=== PATIENT | female | born 1985 | race Caucasian/White ===

== ENCOUNTER 2016-11-20 14:33 | Emergency (ER) | payer BC ==
[~2016-11-20] VITALS: Ht 175.3 cm; Wt 98.0 kg
[2016-11-20 14:34] VITALS: BP 132/83; PULSE 112; RESP 18; TEMP 98.6; O2SAT 98
--- NOTE | 2016-11-20 15:52 | RADRPT ---
EXAM DATE/TIME: 11/20/2016 15:29 [place] COMPARISON: No previous studies available for comparison. INDICATIONS : Patient has had left side chest pain for four days. MEDICAL HISTORY : Asthma. SURGICAL HISTORY : None. ENCOUNTER: Initial ACUITY: 4 - 6 days PAIN SCORE: 3/10 LOCATION: Bilateral chest FINDINGS: A single view of the chest demonstrates the lungs to be symmetrically aerated without evidence of mas s, infiltrate or effusion. The cardiomediastinal contours are unremarkable. Osseous structures are intact. CONCLUSION: No acute disease. John Wahl MD on November 20, 2016 at 15:48 Board Certified Radiologist. This report was verified electronically.
[2016-11-20 16:06] LABS: AUTOMATED NEUTROPHIL # 4.7 TH/MM3 (1.8-7.7); BASOPHIL % 0.6 % (0.0-2.0); EOSINOPHIL % 0.6 % (0.0-4.0); HEMATOCRIT 39.8 % (35.0-46.0); HEMO FLAGS DIFF FINAL; LYMPH % 21.2 % (9.0-44.0); LYMPHOCYTE # 1.4 TH/MM3 (1.0-4.8); MEAN CELL VOLUME 84.7 FL (80.0-100.0); MEAN CORPUSCULAR HEMOGLOBIN 27.8 PG (27.0-34.0); MEAN CORPUSCULAR HGB CONC 32.8 % (32.0-36.0); MONO % 7.5 % (0.0-8.0); NEUT % 70.1 % (16.0-70.0); PLATELET COUNT 216 TH/MM3 (150-450); RED CELL DISTRIBUTION WIDTH 13.8 % (11.6-17.2); WHITE BLOOD COUNT 6.7 TH/MM3 (4.0-11.0)
[2016-11-20 16:11] LABS: ANION GAP 9 MEQ/L (5-15); BICARBONATE 26.9 MEQ/L (21.0-32.0); BLOOD UREA NITROGEN 9 MG/DL (7-18); CHLORIDE 104 MEQ/L (98-107); GLOMERULAR FILTRATION RATE 67 ML/MIN (>89); POTASSIUM 3.5 MEQ/L (3.5-5.1); SODIUM (NA) 140 MEQ/L (136-145)
[2016-11-20 16:15] LABS: CREATINE KINASE 124 U/L (26-192)
[2016-11-20 16:28] LABS: CKMB LESS THAN 0.5 NG/ML (0.5-3.6)
[2016-11-20 16:41] VITALS: BP 113/65; PULSE 73; RESP 17; O2SAT 99
[2016-11-20] MEDS ORDERED: NAPR500T PO (16:52)
--- NOTE | 2016-11-20 16:53 | PD ---
HPI Chief Complaint: Chest Pain Time Seen by Provider: 16:52 Travel History International Travel<30 days: No Contact w/Intl Traveler<30days: No Traveled to known affect area: No History of Present Illness HPI 31-year-old female with a history of anxiety presents to the emergency department for evaluation of left lower chest wall pain for 3 days. Patient describes the pain as constant dull ache for 3 days that worsened today. States that the pain is aggravated with bending over and lifting her left arm above her head. States that she thinks that while she was walking her dog he pulled on the leash causing her to pull a muscle in her chest. Denies any shortness of breath, difficulty breathing, lightheadedness, dizziness, nausea, vomiting, abdominal pain, swelling of the extremities. Denies any history of heart disease or [place]. Denies smoking history. Denies any family history of cardiac disease. She has not taken anything for symptoms so far. No other complaints. PFSH Past Medical History Anxiety: Yes ?: Not LMP: 11/20/16 Past Surgical History Other Surgery: Yes ( CARRIE REMOVAL R ARM AGE 8 ) Social History Alcohol Use: Yes (OCC) Tobacco Use: No Substance Use: No Allergies-Medications (Allergen,Severity, Reaction): Coded Allergies: No Known Allergies (Unverified , 11/20/16) Reported Meds & Prescriptions Reported Meds & Active Scripts Active Naproxen 500 Mg Tab 500 Mg PO BID 7 Days Review of Systems Except as stated in HPI: all other systems reviewed are Neg Physical Exam Narrative GENERAL: Well-nourished and well-developed pleasant female patient in no acute distress who is nontoxic appearing. SKIN: Warm and dry. HEAD: Normocephalic and atraumatic. EYES: No injection, drainage, or hyphema noted. PERRLA. EOMI. ENT: No nasal drainage noted. Oropharynx is clear. NECK: Supple and the trachea is midline. CARDIOVASCULAR: Regular rate and rhythm. RESPIRATORY: Breath sounds are equal bilaterally with no accessory muscle use, wheezing, rhonchi, or crackles. GASTROINTESTINAL: Abdomen is soft, non-tender, and nondistended. MUSCULOSKELETAL: No obvious deformities, swelling, cyanosis, or ecchymosis is present throughout the upper and lower extremities. Patient has full range of motion without any signs of neurovascular compromise. NEUROLOGICAL: Awake, alert, and oriented. Normal speech and gait. Cranial nerves are grossly intact. Data Data Last Documented VS Vital Signs Date Time Temp Pulse Resp B/P Pulse Ox O2 Delivery O2 Flow Rate FiO2 11/20/16 16:41 99 Room Air 11/20/16 16:41 73 17 113/65 11/20/16 14:34 98.6 Orders Electrocardiogram (11/20/16 15:03) Complete Blood Count With Diff (11/20/16 15:) Basic Metabolic Panel (Bmp) (11/20/16 15:) Ckmb (Isoenzyme) Profile (11/20/16 15:) Troponin I (11/20/16 15:) Chest, Single Ap (11/20/16 15:) Iv Access Insert/Monitor (11/20/16 15:) Ecg Monitoring (11/20/16 15:) Oxygen Administration (11/20/16 15:) Oximetry (11/20/16 15:) CKMB (11/20/16:) CKMB% (11/20/16:) Labs Laboratory Tests Test 11/20/16 15:21 White Blood Count 6.7 TH/MM3 Red Blood Count 4.70 MIL/MM3 Hemoglobin 13.1 GM/DL Hematocrit 39.8 % Mean Corpuscular Volume 84.7 FL Mean Corpuscular Hemoglobin 27.8 PG Mean Corpuscular Hemoglobin 32.8 % Concent Red Cell Distribution Width 13.8 % Platelet Count 216 TH/MM3 Mean Platelet Volume 7.8 FL Neutrophils (%) (Auto) 70.1 % Lymphocytes (%) (Auto) 21.2 % Monocytes (%) (Auto) 7.5 % Eosinophils (%) (Auto) 0.6 % Basophils (%) (Auto) 0.6 % Neutrophils # (Auto) 4.7 TH/MM3 Lymphocytes # (Auto) 1.4 TH/MM3 Monocytes # (Auto) 0.5 TH/MM3 Eosinophils # (Auto) 0.0 TH/MM3 Basophils # (Auto) 0.0 TH/MM3 CBC Comment DIFF FINAL Differential Comment Sodium Level 140 MEQ/L Potassium Level 3.5 MEQ/L Chloride Level 104 MEQ/L Carbon Dioxide Level 26.9 MEQ/L Anion Gap 9 MEQ/L Blood Urea Nitrogen 9 MG/DL Creatinine 0.97 MG/DL Estimat Glomerular Filtration 67 ML/MIN Rate Random Glucose 81 MG/DL Calcium Level 8.4 MG/DL Total Creatine Kinase 124 U/L Creatine Kinase MB LESS THAN 0.5 NG/ML Troponin I LESS THAN 0.02 NG/ML MDM Medical Decision Making Medical Screen Exam Complete: Yes Emergency Medical Condition: Yes Differential Diagnosis Chest wall pain versus muscle strain versus muscle spasm versus pleurisy versus costochondritis Narrative Course 31-year-old female presents to the emergency department for evaluation of left chest wall pain for 3 days. Patient is afebrile, vital signs are stable. Physical examination is unremarkable. The patient's pain is suspicious for musculoskeletal etiology. Labs were done per protocol which shows CBC unremarkable, CMP unremarkable, troponin less than 0.02. Chest x-ray is negative. EKG shows normal sinus rhythm with no acute elevations or depressions. I discussed all findings with the patient. I did offer her admission to chest pain center however she like to be discharged home and will follow-up with her PCP. We'll try NSAIDs for her pain. Instructed to return immediately to the emergency department for worsening chest pain, difficulty breathing, lightheadedness or syncope. Patient verbalizes understanding and agreement with treatment plan. I discussed the case with my attending physician Dr. Ford who is aware of the patients history, physical examination findings, and treatment plan. Diagnosis Primary Impression: Left-sided chest wall pain Referrals: Primary Care Physician Patient Instructions: Chest Wall Pain (ED), General Instructions Additional Instructions: Take medications as prescribed with food and a full glass of water. Follow-up with your Primary Care Physician. Return to the ED for any acute worsening of symptoms. Med/Other Pt SpecificInfo: Prescription(s) given Scripts Naproxen 500 Mg [id number] Mg PO BID 7 Days Ref 0 Prov:Nkechi Ford MD 11/20/16 Disposition: 01 DISCHARGE HOME Condition: Stable Liudmila Hugo Nov 20, 2016 16:53
--- NOTE | 2016-11-21 15:41 | EKG ---
Date Performed: 11/20/2016 Time Performed: 15:10:02 PTAGE: 31 years EKG: Sinus rhythm LOW QRS VOLTAGE IN EXTREMITY LEADS BASELINE ARTIFACT NO PRIOR FOR COMPARISON BORDERLINE ECG NO PREVIOUS TRACING DOCTOR: Gricel Armenta Interpretating Date/Time 11/21/2016 15:39:16
== END 2016-11-20 17:27 | disposition home or self-care (01) ==
LOC: NEPC 14:33
DX: R07.89 Other chest pain (principal); R94.31 Abnormal electrocardiogram [ECG] [EKG]; Z86.59 Personal history of other mental and behavioral disorders
CPT/HCPCS: 71010; 80048; 82550; 82552; 84484; 85025; 93005